=== PATIENT | female | born 1995 | race Caucasian/White ===

== ENCOUNTER → 2017-06-13 | Outpatient (CLI) | payer BC ==
--- NOTE | 2017-06-13 09:27 | DIAGNOSTIC IMAGING REPORT ---
SOFT TISS HEAD/NECK-THYROID CLINICAL HISTORY: 21 years-old Female with E04.9 [id number]. Thyroid goiter. COMPARISON: None available TECHNIQUE: Multiple real time sonographic images of the thyroid were obtained accessing solis scale appearance and color doppler flow. FINDINGS: MEASUREMENTS: Right lobe: 5.2 x 1.2 x 1.5 cm Left lobe: 5.2 x 1.3 x 2.0 cm Isthmus: 0.2 cm PARENCHYMA: The thyroid parenchymal echotexture is generally homogeneous. NODULES: There are multiple small hypoechoic nodules containing internal echogenic foci suggesting colloid cysts, largest of which measure up to 0.6 x 0.6 x 0.5 cm within the mid pole left thyroid. Largest nodule within the right thyroid is within the mid pole, 0.4 x 0.2 x 0.2 cm. 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 No suspicious nodules are identified. The above report was generated using voice recognition software. It may contain grammatical, syntax or spelling errors. Electronically signed by: Rambo Peter M.D. 06/13/2017 9:26 AM Dictated Date/Time: 06/13/2017 9:22 AM
[2017-06-13 10:03] LABS: BLOOD UREA NITROGEN 13 mg/dl (7-18); BUN/CREATININE RATIO 20.7 (10-20); CALCIUM 8.9 mg/dl (8.5-10.1); CARBON DIOXIDE 25 mmol/L (21-32); CHLORIDE 108 mmol/L (98-107); CHOLESTEROL 135 mg/dl (0-200); CREATININE 0.63 mg/dl (0.60-1.20); GLUCOSE 82 mg/dl (70-99); POTASSIUM 3.9 mmol/L (3.5-5.1); SODIUM 140 mmol/L (136-145)
[2017-06-13 10:13] LABS: PROLACTIN 13.39 ng/mL
[2017-06-13 10:14] LABS: CHOLESTEROL/HDL RATIO 1.9; HDL CHOLESTEROL 72 mg/dl; LDL CHOLESTEROL CALCULATED 51 mg/dl; THYROID STIMULATING HORMONE 0.838 uIu/ml (0.300-4.500); TRIGLYCERIDES 58 mg/dl (0-150); VERY LOW DENSITY LIPOPROT CALC 12 mg/dl
== END | disposition home or self-care (01) ==
LOC: C.ULTR 08:31
PROVIDERS: ATTEND Internal Medicine Endocrinology, Diabetes & Metabolism
DX: E04.2 Nontoxic multinodular goiter (principal); L68.0 Hirsutism; E28.2 Polycystic ovarian syndrome

== ENCOUNTER → 2017-07-05 | Outpatient (CLI) | payer BC ==
[~2017-07-05] MED LIST: GADAVIST IV PRN
--- NOTE | 2017-07-05 17:32 | DIAGNOSTIC IMAGING REPORT ---
BRAIN COMBO FOR PITUITARY CLINICAL HISTORY: 21 years-old Female presenting with concern for polycystic ovarian syndrome, elevated hormones, possible prolactinemia. TECHNIQUE: Multisequence, multiplanar MR imaging of the brain was performed before and after the administration of intravenous contrast. IV contrast: 5 mL of Gadavist. COMPARISON: None. FINDINGS: Ventricles and sulci normal in size. 13 x 9 x 9 mm centrally cystic lesion peripheral soft tissue rim in the region of the pineal gland. Rim enhancement measures less than 2 mm in thickness. No significant nodular soft tissue. Brain parenchyma otherwise normal in appearance with preserved solis-white differentiation. No mass effect or midline shift. No restricted diffusion to suggest acute ischemia. No hemorrhage. No extra-axial fluid collection. T2 skull base flow voids preserved. No abnormal parenchymal enhancement of the pituitary gland. No enlargement of the pituitary. Bone marrow signal intensity within the calvarium within normal limits. IMPRESSION: 1. No abnormality of the pituitary gland. 2. 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 Differential considerations felt to be significantly less likely include cystic pineocytoma or cystic cell tumor. Follow-up imaging in 3-6 months to be considered to ensure stability. Electronically signed by: Choco Baker M.D. 07/05/2017 5:31 PM Dictated Date/Time: 07/05/2017 5:19 PM
== END | disposition home or self-care (01) ==
LOC: C.MRI 15:52
PROVIDERS: ATTEND Internal Medicine Endocrinology, Diabetes & Metabolism
DX: E22.1 Hyperprolactinemia (principal); E34.8 Other specified endocrine disorders

== ENCOUNTER → 2017-07-28 | Outpatient (CLI) | payer BC | END | disposition home or self-care (01) | LOC: C.LAB 13:12 | PROVIDERS: ATTEND Internal Medicine Endocrinology, Diabetes & Metabolism | DX: E28.2 Polycystic ovarian syndrome (principal) ==